=== PATIENT | female | born 1980 | race Caucasian/White ===

== ENCOUNTER 2021-12-02 09:00 | Outpatient (RCR) | payer OTHER, SELFPAY ==
--- NOTE | 2021-10-25 14:02 | PT.OIE ---
Current Diagnoses Personal history of other diseases of the female genital tract (10/25/21) Visit Care Team Role Provider Type TALIB Jiang FNP-C Attending Provider Non-Staff Family Provider Primary Care Provider Referring Provider Specialty: Family Practice Address: [address] [place] [address], [address], [place], [address] Email: Physical Therapy Initial Evaluation PT-OP-A Visit Information Start: 10/25/21 08:58 Freq: Status: Active Protocol: Document 10/25/21 08:59 AMB (Rec: 10/25/21 09:14 AMB [id number]) Out-Patient Physical Therapy Visit Information Visit Information Visit Type Initial Evaluation Visit Start Time 09:00 Visit Stop Time 09:45 Total Visit Minutes 45 Visit Number 1 PT-OP-B Current Condition Start: 10/25/21 08:58 Freq: Status: Active Protocol: Document 10/25/21 08:59 AMB (Rec: 10/25/21 09:14 AMB [id number]) Current Condition History of Current Condition Onset Date 15 year Current Complaints BUD/prolapse History of Current Condition Prolapse after first child, extended pushing with that vaginal delivery. . Leaking is worse at certain times but difficult to know when. Leaking with running intermittent. History of urgency but feels like that isn't as bad right now. Denies chronic constipation/ cough. 15 years ago saw pelvic PT and found it helpful , but symptoms have worsened in the last few years. Prior Functional Status Baseline Function- ADL's Independent Baseline Function- Mobility Independent Current Functional Impairments (Reported) Functional Limitations- ADL's Leaking with running Personal Factors Other Personal Factors That May Effect lives on [facility] Therapy/Recovery commute to PT PT-OP-C Subjective Start: 10/25/21 08:58 Freq: Status: Active Protocol: Document 10/25/21 09:00 AMB (Rec: 10/28/21 08:51 AMB [id number]) Patient Questionnaires Pelvic Pain and Urgency/Frequency Patient Symptom Scale Pelvic Pain Score 2 PT-OP-I Pelvic Floor Start: 10/25/21 08:58 Freq: Status: Active Protocol: Document 10/25/21 09:00 AMB (Rec: 10/28/21 09:01 AMB [id number]) Pelvic Floor Assessment Urine Pelvic Floor Surgery No Urinary Symptoms Urge Sensation,Prolapse Leakage Size Medium Leakage Cause Exercise,Sneeze Leaks Per Day 3-4/month Voiding Frequency 6/day Nocturia 0 Urine Pad Type Maxi Pad Bowel Bowel Surgery No Prolapse Cystocele Grade 3 Perineal Descent Resting Present Bearing Present Contraction Ability Voluntary Contraction Moderate Voluntary Relaxation Moderate Manual Muscle Testing Left 3 Manual Muscle Testing Right 3 Manual Muscle Testing Anterior 2 Manual Muscle Testing Posterior 3 Muscle Endurance (Seconds) 5 Number of Quick Contractions In 10 5 Seconds Comments Pelvic Floor Comments Able to contract posterior pelvic floor, but anterior muscles lack levator lift PT-OP-T Assessment and Plan Start: 10/25/21 08:58 Freq: Status: Active Protocol: Document 10/29/21 09:00 AMB (Rec: 10/28/21 09:01 AMB [id number]) Physical Therapy Assessment Rehab Potential Rehabilitation Potential Good Evaluation Complexity Number of Personal Factors/Comorbidities 1-2 Number of Body Systems Impaired 1-2 Clinical Presentation at Evaluation Stable Impairments Impairments Activity Tolerance,Strength Goals Two Impairment Pelvic floor strength Short Term Goal (STG) Melani will show improved pelvic floor strength by jaylene for 10 seconds. STG Duration 4 weeks Fpc Goal (LTG) Melani will show improved pelivc floor strenght by jaylene her pelvic floor while moving from sit to stand . LTG Duration 10 weeks One Impairment Continence Short Term Goal (STG) Melani will run for 1/4 mile without leaking. STG Duration 4 weeks [place] [employer] Goal (LTG) Melani will contract her pelvic floor while performing light plyometrics without leaking. LTG Duration 10 weeks Assessment Summary Assessment Melani attends physical therapy with worsening stress urinary incontinence. Had managed it for many years after the of her first child, but has been worsening, mostly with running. Does have cystocele, decreased ability to contract anterior pelvic floor. Will benefit from physical therapy for instruction in pelvic floor strengthening to reduce her stress urinary incontinence. Physical Therapy Plan Frequency and Duration Frequency of Treatment 1x/Week Duration of Treatment 10 weeks Plan of Care Start Date 10/25/21 Plan of Care End Date 01/03/22 Therapeutic Interventions Therapeutic Interventions Home Exercise Program,Manual Therapy,Neuromuscular Re- education,Self-Care/Home Management,Soft Tissue Mobilization,Therapeutic Activities,Therapeutic Exercises Modalities Biofeedback,Cold Pack/Ice Massage,Electric Stimulation, Hot Packs Next Visit Focus/Plan Next Note Type Treatment Note Next Visit Plan progress into standing, discuss strengthening with functional movement
--- NOTE | 2021-10-25 14:03 | PT.OPPOC ---
Physical, Occupational & Speech Therapy At [facility] Current Diagnoses Personal history of other diseases of the female genital tract (10/25/21) Visit Care Team Role Provider Type TALIB Jiang FNP-C Attending Provider Non-Staff Family Provider Primary Care Provider Referring Provider Specialty: Family Practice Address: [address] [place] [address], [address], [place], [address] Email: Plan Of Care PT-OP-T Assessment and Plan Start: 10/25/21 08:58 Freq: Status: Active Protocol: Document 10/29/21 09:00 AMB (Rec: 10/28/21 09:01 AMB [id number]) Physical Therapy Assessment Rehab Potential Rehabilitation Potential Good Evaluation Complexity Number of Personal Factors/Comorbidities 1-2 Number of Body Systems Impaired 1-2 Clinical Presentation at Evaluation Stable Impairments Impairments Activity Tolerance,Strength Goals Two Impairment Pelvic floor strength Short Term Goal (STG) Melani will show improved pelvic floor strength by jaylene for 10 seconds. STG Duration 4 weeks Group Home Goal (LTG) Melani will show improved pelvic floor strength by jaylene her pelvic floor while moving from sit to stand . LTG Duration 10 weeks One Impairment Continence Short Term Goal (STG) Melani will run for 1/4 mile without leaking. STG Duration 4 weeks [place] Goal (LTG) Melani will contract her pelvic floor while performing light plyometrics without leaking. LTG Duration 10 weeks Assessment Summary Assessment Melani attends physical therapy with worsening stress urinary incontinence. Had managed it for many years after the of her first child, but has been worsening, mostly with running. Does have cystocele, decreased ability to contract anterior pelvic floor. Will benefit from physical therapy for instruction in pelvic floor strengthening to reduce her stress urinary incontinence. Physical Therapy Plan Frequency and Duration Frequency of Treatment 1x/Week Duration of Treatment 10 weeks Plan of Care Start Date 10/25/21 Plan of Care End Date 01/03/22 Therapeutic Interventions Therapeutic Interventions Home Exercise Program,Manual Therapy,Neuromuscular Re- education,Self-Care/Home Management,Soft Tissue Mobilization,Therapeutic Activities,Therapeutic Exercises Modalities Biofeedback,Cold Pack/Ice Massage,Electric Stimulation, Hot Packs Next Visit Focus/Plan Next Note Type Treatment Note Next Visit Plan progress into standing, discuss strengthening with functional movement Plan of Care Dates Plan of Care Start Date 10/25/21 Plan of Care End Date 01/03/22 Electronically Signed by: Bettye Still, MERLENE 11/04/21 0810 Please Sign and Return: I have reviewed this Plan of Care and certify that the skilled therapy services above are required to meet the patient?s needs. Physician Signature Date Printed Name and Credentials Clinical Instructor Signature Printed Name and Credentials
--- NOTE | 2021-11-18 12:37 | PT.OTN ---
Current Diagnoses Personal history of other diseases of the female genital tract (11/18/21) Physical Therapy Treatment Note PT-OP-A Visit Information Start: 10/25/21 08:58 Freq: Status: Active Protocol: Document 11/18/21 11:14 AMB (Rec: 11/18/21 12:37 AMB [id number]) Out-Patient Physical Therapy Visit Information Visit Information Visit Type Treatment Note Visit Start Time 11:15 Visit Stop Time 12:00 Total Visit Minutes 45 Visit Number 2 PT-OP-B Current Condition Start: 10/25/21 08:58 Freq: Status: Active Protocol: Document 10/25/21 08:59 AMB (Rec: 10/25/21 09:14 AMB [id number]) Current Condition History of Current Condition Onset Date 15 year Current Complaints BUD/prolapse History of Current Condition Prolapse after first child, extended pushing with that vaginal delivery. . Leaking is worse at certain times but difficult to know when. Leaking with running intermittent. History of urgency but feels like that isn't as bad right now. Denies chronic constipation/ cough. 15 years ago saw pelvic PT and found it helpful , but symptoms have worsened in the last few years. Prior Functional Status Baseline Function- ADL's Independent Baseline Function- Mobility Independent Current Functional Impairments (Reported) Functional Limitations- ADL's Leaking with running Personal Factors Other Personal Factors That May Effect lives [facility] Therapy/Recovery commute to PT PT-OP-C Subjective Start: 10/25/21 08:58 Freq: Status: Active Protocol: Document 11/18/21 11:14 AMB (Rec: 11/18/21 12:37 AMB [id number]) OP-PT Subjective Patient Comments Patient Comments WEnt on a run on Thursday and exercise overall felt better. PT-OP-I Pelvic Floor Start: 10/25/21 08:58 Freq: Status: Active Protocol: Document 10/25/21 09:00 AMB (Rec: 10/28/21 09:01 AMB [id number]) Pelvic Floor Assessment Urine Pelvic Floor Surgery No Urinary Symptoms Urge Sensation,Prolapse Leakage Size Medium Leakage Cause Exercise,Sneeze Leaks Per Day 3-4/month Voiding Frequency 6/day Nocturia 0 Urine Pad Type Maxi Pad Bowel Bowel Surgery No Prolapse Cystocele Grade 3 Perineal Descent Resting Present Bearing Present Contraction Ability Voluntary Contraction Moderate Voluntary Relaxation Moderate Manual Muscle Testing Left 3 Manual Muscle Testing Right 3 Manual Muscle Testing Anterior 2 Manual Muscle Testing Posterior 3 Muscle Endurance (Seconds) 5 Number of Quick Contractions In 10 5 Seconds Comments Pelvic Floor Comments Able to contract posterior pelvic floor, but anterior muscles lack levator lift PT-OP-Q Treatments Start: 10/25/21 08:58 Freq: Status: Active Protocol: Document 11/18/21 11:14 AMB (Rec: 11/18/21 12:37 AMB [id number]) Therapeutic Exercises Supine Exercises supine on wedges Reps/Minutes 10 Comments with breath, focus on anterior Sitting Exercises roll in roll out Sitting Exercise Name #2 t band Reps/Minutes 10 Standing Exercises lunges Reps/Minutes mini x 10 squats Standing Exercise Name WBOS, sit to stand Reps/Minutes 10 PT-OP-T Assessment and Plan Start: 10/25/21 08:58 Freq: Status: Active Protocol: Document 11/18/21 11:14 AMB (Rec: 11/18/21 12:37 AMB [id number]) Physical Therapy Assessment Goals Two Impairment Pelvic floor strength Short Term Goal (STG) Melani will show improved pelvic floor strength by jaylene for 10 seconds. STG Duration 4 weeks [employer] Goal (LTG) Melani will show improved pelivc floor strenght by jaylene her pelvic floor while moving from sit to stand . LTG Duration 10 weeks One Impairment Continence Short Term Goal (STG) Melani will run for 1/4 mile without leaking. STG Duration 4 weeks [employer] Goal (LTG) Melani will contract her pelvic floor while performing light plyometrics without leaking. LTG Duration 10 weeks Assessment Summary Assessment Melani hasn't really had much leaking this past 3 weeks but also hasn't been exercising as much. Physical Therapy Plan Next Visit Focus/Plan Next Note Type Treatment Note Next Visit Plan progress into standing, discuss strengthening with functional movement
--- NOTE | 2021-12-03 08:58 | PT.OTN ---
Current Diagnoses Personal history of other diseases of the female genital tract (12/02/21) Physical Therapy Treatment Note PT-OP-A Visit Information Start: 10/25/21 08:58 Freq: Status: Active Protocol: Document 12/02/21 09:00 AMB (Rec: 12/03/21 08:54 AMB [id number]) Out-Patient Physical Therapy Visit Information Visit Information Visit Type Treatment Note Visit Start Time 11:15 Visit Stop Time 12:00 Total Visit Minutes 45 Visit Number 3 PT-OP-B Current Condition Start: 10/25/21 08:58 Freq: Status: Active Protocol: Document 10/25/21 08:59 AMB (Rec: 10/25/21 09:14 AMB [id number]) Current Condition History of Current Condition Onset Date 15 year Current Complaints BUD/prolapse History of Current Condition Prolapse after first child, extended pushing with that vaginal delivery. . Leaking is worse at certain times but difficult to know when. Leaking with running intermittent. History of urgency but feels like that isn't as bad right now. Denies chronic constipation/ cough. 15 years ago saw pelvic PT and found it helpful , but symptoms have worsened in the last few years. Prior Functional Status Baseline Function- ADL's Independent Baseline Function- Mobility Independent Current Functional Impairments (Reported) Functional Limitations- ADL's Leaking with running Personal Factors Other Personal Factors That May Effect lives on [facility] Therapy/Recovery commute to PT PT-OP-C Subjective Start: 10/25/21 08:58 Freq: Status: Active Protocol: Document 12/02/21 09:00 AMB (Rec: 12/03/21 08:54 AMB [id number]) OP-PT Subjective Patient Comments Patient Comments Has had one leak with running, the other run went well without any leaks, jumping agility training went well for short burst. PT-OP-I Pelvic Floor Start: 10/25/21 08:58 Freq: Status: Active Protocol: Document 10/25/21 09:00 AMB (Rec: 10/28/21 09:01 AMB [id number]) Pelvic Floor Assessment Urine Pelvic Floor Surgery No Urinary Symptoms Urge Sensation,Prolapse Leakage Size Medium Leakage Cause Exercise,Sneeze Leaks Per Day 3-4/month Voiding Frequency 6/day Nocturia 0 Urine Pad Type Maxi Pad Bowel Bowel Surgery No Prolapse Cystocele Grade 3 Perineal Descent Resting Present Bearing Present Contraction Ability Voluntary Contraction Moderate Voluntary Relaxation Moderate Manual Muscle Testing Left 3 Manual Muscle Testing Right 3 Manual Muscle Testing Anterior 2 Manual Muscle Testing Posterior 3 Muscle Endurance (Seconds) 5 Number of Quick Contractions In 10 5 Seconds Comments Pelvic Floor Comments Able to contract posterior pelvic floor, but anterior muscles lack levator lift PT-OP-Q Treatments Start: 10/25/21 08:58 Freq: Status: Active Protocol: Document 12/02/21 09:00 AMB (Rec: 12/03/21 08:54 AMB [id number]) Therapeutic Exercises Sitting Exercises roll in roll out Sitting Exercise Name #2 t band Reps/Minutes 10 Standing Exercises lunges Reps/Minutes mini x 10 squats Standing Exercise Name WBOS, sit to stand Reps/Minutes 10 PT-OP-T Assessment and Plan Start: 10/25/21 08:58 Freq: Status: Active Protocol: Document 12/02/21 09:06 AMB (Rec: 12/02/21 09:36 AMB [id number]) Physical Therapy Assessment Goals Two Impairment Pelvic floor strength Short Term Goal (STG) Melani will show improved pelvic floor strength by jaylene for 10 seconds. STG Duration MET Shelter Goal (LTG) Melani will show improved pelivc floor strenght by jaylene her pelvic floor while moving from sit to stand . LTG Duration MET One Impairment Continence Short Term Goal (STG) Melani will run for 1/4 mile without leaking. STG Duration MET Escalator Constructor Goal (LTG) Melani will contract her pelvic floor while performing light plyometrics without leaking. LTG Duration MET Assessment Summary Assessment Melani is doing well with her HEP, encouraged her to continue with her running and could consider having her PCP look at her prolapse in about a year to make sure she is not worsening. Physical Therapy Plan Discharge Physical Therapy Discharge Reasons Goals Met
== END 2021-12-05 13:08 ==
LOC: PHYS 09:00
PROVIDERS: Family Provider Nurse Practitioner Family; PCP Nurse Practitioner Family; Referring Provider Nurse Practitioner Family; Visit Provider Nurse Practitioner Family
DX: Z87.42 Personal history of other diseases of the female genital tract (principal)
CPT/HCPCS: 97110; 97161